=== PATIENT | female | born 1990 | race Hispanic/Latino ===

== ENCOUNTER 2017-10-18 20:18 | Emergency (ER) | payer SELFPAY ==
--- NOTE | 2017-10-18 21:01 | C.PDOC ---
History Of Present Illness 27F c/o left lower abd cramping on and off for a few days worse since last night. Small amount pink spotting x1 this morning none since. +preg test yesterday. last normal periods was mid august. had some light spotting sep 12 -. . denies psh or sig pmh. Time Seen by Provider: 10/18/17 20:26 Chief Complaint (Nursing): Abdominal Pain Past Medical History Vital Signs: Last Vital Signs Temp 98.1 F 10/18/17 23:45 Pulse 99 H 10/18/17 23:45 Resp 20 10/18/17 23:45 BP 116/78 10/18/17 23:45 Pulse Ox 97 10/18/17 23:45 - [facility] IMMOBILIZ/WOUND ATTN NEC (05/02/03) Family History: States: Other Other Family History: nc - Social History Hx Tobacco Use: Yes Hx Alcohol Use: Yes Hx Substance Use: Yes - Immunization History Hx Tetanus Toxoid Vaccination: No Hx Influenza Vaccination: No Hx Pneumococcal Vaccination: No Review Of Systems Constitutional: Negative for: Fever, Chills Cardiovascular: Negative for: Chest Pain Respiratory: Negative for: Cough, Shortness of Breath Gastrointestinal: Positive for: Abdominal Pain. Negative for: Nausea, Vomiting , Diarrhea Genitourinary: Negative for: Dysuria, Frequency, Incontinence Physical Exam - Physical Exam Appears: Well, Non-toxic, No Acute Distress Skin: Warm, Dry Oral Mucosa: Moist Cardiovascular: Rhythm Regular Respiratory: No Decreased Breath Sounds, No Accessory Muscle Use Gastrointestinal/Abdominal: Soft, Tenderness (LLQ only), No Distention, No Guarding, No Rebound Neurological/Psych: Oriented x3, Other (no focal deficits) ED Course And Treatment O2 Sat by Pulse Oximetry: 100 Medical Decision Making Medical Decision Making: TV ultrasound IMPRESSION: Single live IUP as above. 2.2 cm left ovarian cyst. Small amount of free fluid visualized. Followup imaging recommended. Pt appears comfortable, no distress. Abdominal exam benign. Disc results, plan for f/u and rtr. Disposition - Disposition Referrals: [facility] [Outside] Disposition: HOME/ ROUTINE Disposition Time: 23:45 Condition: GOOD Additional Instructions: Please follow up in the clinic. Return to the ER for any worsening symptoms or for any other concerns. Prescriptions: Nitrofurantoin Macrocrystals [Macrobid] 100 mg PO BID #14 cap Instructions: Abdominal Pain in (ED) Forms: General Discharge Instructions, [facility] (Bots[place]an) - Clinical Impression Clinical Impression: Abdominal pain in
[2017-10-18 21:02] LABS: RBC URINE 11 /hpf (0-3); URINE BACTERIA OCC (<OCC); URINE BILIRUBIN NEGATIVE (NEGATIVE); URINE BLOOD NEGATIVE (NEGATIVE); URINE COLOR Yellow (YELLOW); URINE GLUCOSE (UA) NORMAL (Normal); URINE KETONE NEGATIVE (NEGATIVE); URINE LEUKOCYTE ESTERASE 2+ Leu/uL (Negative); URINE PROTEIN NEGATIVE (NEGATIVE); URINE UROBILINOGEN NORMAL mg/dL (0.2-1.0); WBC URINE 29 /hpf (0-5)
--- NOTE | 2017-10-18 23:37 | US ---
EXAM: US CLINICAL HISTORY: 27 years old, female; Pain; complicated by abdominal or pelvic pain; Left lower quadrant; First trimester; Gestational age or lmp: 9-10-17; ; Additional info: Rule out ectopic TECHNIQUE: Real-time transabdominal and transvaginal obstetrical ultrasound of the maternal pelvis and a first trimester with image documentation. Transvaginal imaging was used for better evaluation of the fetus and adnexa. COMPARISON: No relevant prior studies available. FINDINGS: Gestation: Intrauterine gestational sac noted. Yolk sac and pole identified. Heart rate noted at 120 bpm. Estimated gestational age based on crown-rump length measurement is 6 weeks 1 day. Uterus/cervix: No acute abnormality as visualized. No myometrial mass. Ovaries: Bilateral flow. 2.2 cm left ovarian cyst. Free fluid: Small amount of free fluid visualized. IMPRESSION: Single live IUP as above. 2.2 cm left ovarian cyst. Small amount of free fluid visualized. Followup imaging recommended.
[2017-10-19 00:23] VITALS: BP 116/78; PULSE 99; RESP 20; TEMP 98.1
[2017-10-22 16:45] VITALS: O2SAT 100
== END 2017-10-18 22:50 | disposition home or self-care (01) ==
LOC: C.ER 20:18
DX: O26.891 Other specified pregnancy related conditions, first trimester (principal); Z3A.01 Less than 8 weeks gestation of pregnancy; R10.30 Lower abdominal pain, unspecified

== ENCOUNTER 2018-05-09 13:10 | Emergency (ER) | payer OTHER ==
--- NOTE | 2018-05-09 14:00 | OBHP ---
Datetime: 05/09/2018 13:42 IP Adm Impression: , intrauterine ; No Active Labor IP Chief Complaint Other: Pelvic pressure IP Admit Plan: Discharge home Admit Comment, IP Provider: 27 y.o. , LMP unsure, ZHANG 06/02/18, EGA 36w 4d per patietn by ultr asound 10/2017 at approx 6 weeks, c/o stronger pelvic pressure as of 1000 hours, pain scale 10/10; no w none. Last night onset of occ lower abdominal and upper abdomnal pressure, then progressed as above . (+) AFM; denies LOF, VB. Last had sexual intercourse 10/2017. care: [facility]; denies issues. Last visit 04/28; next visit 05/12. P OB: , 11/07/2008, male, 7lb 8oz. Gile; A1 GDM; no other complications. VTOP x 2: 2007, 10 weeks, with D_C. 2015, 6 weeks, medical - both, no complications. P FORGESMITH: 12 x monthly x 5. Denies STIs, abnormal Pap, myomata, ovarian cysts. PMH: denies PSH: D_C NKDA No food allergies Meds: PNV - QD Soc Hx: current tobacco use now 7 cig/day; prev 1/2 ppd since age 15. Denies EtOH or illicit drug use. With FOB x 10 yrs; lives with him and their son. Ass't [employer] Fam Hx: Mother alive 49 - lupus. Father age 60 - cirrhosis of liver/ h/o chr EtOH. MGF, mat aunt - colon cancer. 1 pat uncle - liver CA P.E.: as above. WD in NAD. Awake, alert, oriented to time, person and place. Pleasant and cooperat ayleen. Assessment: 27 y.o. P1021, 36w 4d, pelvic pressure - slight cervical dilatation. Category 1 saba ng. Clinically stable. Plan: 1) Advised to keep herself well hydrated 2) Keep next scheduled preanatal appointment 3) Reviewed S/S labor. Pelvic Type - PN: Adequate Extremities - PN: Normal Abdomen - PN: Normal Back - PN: Normal Breast - PN: Not Done Lungs - PN: Normal Heart - PN: Normal Thyroid - PN: Not Done Neurologic - PN: Normal HEENT - PN: Normal General - PN: Normal Weight - Estimated: 6 1/2 lbs Presentation-Admit: Vertex FHR - Baseline A Provider: 140 Contraction Comments Provider: none Comments, ACOG Physical Exam: Abdomen: Soft. Gravid. Fundal height 36cm All other systems reviewed and are negative Gestation - Est Wks by US: 36w 4d EGA AdmitDate IP: 36.4 Vital Signs Provider: Reviewed IP Chief Complaint: Uterine contractions; Other NICHD Variability Prov Fetus A: Moderate 6-25bpm NICHD Accel Fetus A IP Provider: 15X15 FHR Category Provider Fetus A: Category I NICHD Decel Fetus A IP Provider: None Dilatation, Provider: 2 Effacement, Provider: 40 Station, Provider: -3 Genitourinary Exam: Normal DTRs - PN: Normal
[2018-05-09 18:17] VITALS: BP 127/70; PULSE 111; RESP 17; TEMP 97.1
== END 2018-05-09 13:42 | disposition home or self-care (01) ==
LOC: C.EROB 13:10
DX: O34.33 Maternal care for cervical incompetence, third trimester (principal); O26.893 Other specified pregnancy related conditions, third trimester; R10.2 Pelvic and perineal pain; Z3A.36 36 weeks gestation of pregnancy

== ENCOUNTER 2018-05-29 19:56 | Emergency (ER) | payer OTHER ==
[2018-05-29 20:54] VITALS: BMI 32.2
--- NOTE | 2018-05-29 21:06 | OBHP ---
Datetime: 05/29/2018 20:43 IP Adm Impression: Term, intrauterine IP Admit Plan: Observation/Evaluation Admit Comment, IP Provider: IUP at 37 2/7 weeks Irregular contractions with + cervical change from visit and per patient FHT's reassuring Labor precautions reviewed with patient and she was Discharge home in Stable and Satisfactory cond ition. Pelvic Type - PN: Adequate Extremities - PN: Normal Abdomen - PN: Normal Back - PN: Normal Breast - PN: Normal Lungs - PN: Normal Heart - PN: Normal Thyroid - PN: Normal Neurologic - PN: Normal HEENT - PN: Normal General - PN: Normal Presentation-Admit: Vertex FHR - Baseline A Provider: 150 Membranes, Provider: Intact Contraction Comments Provider: Irregular and mild Gestation - Est Wks by US: 37+ Pool Provider: Negative EGA AdmitDate IP: 37.3 Vital Signs Provider: Reviewed IP Chief Complaint: Uterine contractions NICHD Variability Prov Fetus A: Moderate 6-25bpm NICHD Accel Fetus A IP Provider: 10X10 FHR Category Provider Fetus A: Category I NICHD Decel Fetus A IP Provider: None Dilatation, Provider: 1-2 Effacement, Provider: 50 Station, Provider: -3 Genitourinary Exam: Normal DTRs - PN: Normal
[2018-05-30 01:34] VITALS: BP 110/65; PULSE 82; TEMP 98.4
== END 2018-05-29 20:48 | disposition home or self-care (01) ==
LOC: C.EROB 19:56
DX: O47.1 False labor at or after 37 completed weeks of gestation (principal); Z3A.37 37 weeks gestation of pregnancy

== ENCOUNTER 2018-06-10 22:51 | Inpatient (IN) | payer OTHER ==
[2018-06-10 23:17] VITALS: BMI 31.9
--- NOTE | 2018-06-10 23:20 | OBADHP ---
Datetime: 06/10/2018 23:13 Admit Comment, IP Provider: at 39=weeks came with c/o lof on/off started today in morning, on/o ff, no ctxs,no vb,=fm obhx 1 x pmh de medcpnv all nkda psh de soch de sse +nitazne ve 2-370/-2 a/p at 39+weeks rom admit to l_d npo/ivf albs cont karly and efm cytoec aticipate Pelvic Type - PN: Adequate Extremities - PN: Normal Abdomen - PN: Normal Back - PN: Normal Breast - PN: Normal Lungs - PN: Normal Heart - PN: Normal Thyroid - PN: Normal Neurologic - PN: Normal HEENT - PN: Normal General - PN: Normal FHR - Baseline A Provider: 140 Contraction Comments Provider: irr Nitrazine Provider: Positive IP Hx Assessment: The History has been Reviewed and is Current Vital Signs Provider: Reviewed; Within Normal Limits IP Chief Complaint: Suspected ruptured membranes NICHD Variability Prov Fetus A: Moderate 6-25bpm NICHD Accel Fetus A IP Provider: 15X15 FHR Category Provider Fetus A: Category I Dilatation, Provider: 2 Effacement, Provider: 60 Station, Provider: -2 Genitourinary Exam: Normal DTRs - PN: Normal EGA AdmitDate IP: 39.1 IP Adm Impression: Term, intrauterine IP Admit Plan: Admit to unit; Initiate labor protocol Datetime: 05/29/2018 20:43 Presentation-Admit: Vertex Membranes, Provider: Intact Gestation - Est Wks by US: 37+ Pool Provider: Negative NICHD Decel Fetus A IP Provider: None Datetime: 05/09/2018 13:42 IP Chief Complaint Other: Pelvic pressure Weight - Estimated: 6 1/2 lbs Comments, ACOG Physical Exam: Abdomen: Soft. Gravid. Fundal height 36cm All other systems reviewed and are negative
[2018-06-10] MEDS: Lactated Ringer's 1,000 ML IV SCH (23:25)
[2018-06-10 23:55] LABS: BASO # 0.1 K/uL (0.0-0.2); BASO % 0.5 % (0.0-2.0); EOS # 0.3 K/uL (0.0-0.7); EOS % 1.8 % (0.0-4.0); HEMOGLOBIN 10.9 g/dL (11.0-16.0); LYMPH # 2.8 K/uL (1.0-4.3); LYMPH % 17.9 % (20.0-40.0); MEAN CELL VOLUME 87.9 fL (81.0-99.0); MEAN CORPUSCULAR HEMOGLOBIN 29.8 pg (27.0-31.0); MEAN CORPUSCULAR HGB CONC 33.9 g/dL (33.0-37.0); MONO % 6.1 % (0.0-10.0); NEUT # 11.6 K/uL (1.8-7.0); NEUT % 73.7 % (50.0-75.0); NRBC % 0.1 % (0.0-2.0); RBC 3.65 Mil/uL (3.80-5.20); RED CELL DISTRIBUTION WIDTH 13.1 % (11.5-14.5); WHITE BLOOD COUNT 15.7 K/uL (4.8-10.8)
[2018-06-11 00:32] LABS: BARBITURATES, UR NEGATIVE (NEGATIVE); BENZODIAZEPINES, UR NEGATIVE (NEGATIVE); OPIATES, UR NEGATIVE (NEGATIVE); PHENCYCLIDINE, UR NEGATIVE (NEGATIVE)
--- NOTE | 2018-06-11 07:17 | OBDS ---
DELIVERY PERSONNEL Delivery Doctor: Pradeep Pablo MD Scrub Nurse: Michelle [employer] Driver: Waleska Valera RN MATERNAL INFORMATION Delivery Anesthesia: Local Medications in Delivery: pitocin Estimated Blood Loss (ml): 350 Placenta Cultured: No Maternal Complications: None RN Comments: alive male delivered. dr Pablo attended delivery. patient sustended laceration and was sutured by dr pablo. infant attended by joy joyce. a/s / Provider Comments: baby deliverd in [place], end clean 9/9 cord gas no com LABOR SUMMARY EDC: 06/16/2018 00:00 No. Babies in Womb: 1 Attempted: No Labor Anesthesia: None LABOR INFORMATION Reason for Induction: Premature Rupture of Membranes Onset of Labor: 06/11/2018 04:00 Complete Dilatation: 06/11/2018 06:33 Cervical Ripening Agents: Cytotec @ Oxytocin: N/A Group B Beta Strep: Negative Steroids Given: None Reason Steroids Not Administered: Not Applicable MEMBRANES Membranes Rupture Method: Spontaneous Rupture of Membranes: 06/10/2018 11:00 Length of Rupture (hrs): 19.58 Amniotic Fluid Color: Clear STAGES OF LABOR Stage 1 hrs: 2 Stage 1 min: 33 Stage 2 hrs: 0 Stage 2 min: 2 Stage 3 hrs: 0 Stage 3 min: 2 Total Time in Labor hrs: 2 Total Time in Labor min: 37 VAGINAL DELIVERY Laceration Type: Periurethral Laceration Repair: Yes Initial Vag Sponge Count: 10+1 Final Vag Sponge Count: 10+1 Initial Vag Sharps Count: 0 Final Vag Sharps Count: 1 Sponge Count Correct: Yes; Vaginal Sweep Performed Sharps Count Correct: Yes BABY A INFORMATION Infant Delivery Date/Time: 06/11/2018 06:35 Method of Delivery: Vaginal Born in Route : No : N/A Forceps: N/A Vacuum Extraction: N/A Shoulder Dystocia : No SHOULDER DYSTOCIA BABY A Delivery Date/Time: 06/11/2018 06:35 PRESENTATION/POSITION BABY A Presentation: Cephalic Cephalic Presentation: Vertex Vertex Position: Left Occipital Anterior Breech Presentation: N/A PLACENTA INFORMATION BABY A Placenta Delivery Time : 06/11/2018 06:37 Placenta Method of Delivery: Spontaneous Placenta Status: Delivered SCORES BABY A Heart Rate 1 min: >100 bpm Resp Effort 1 min: Good Cry Reflex Irritability 1 min: Cough or Sneeze or Pulls Away Muscle Tone 1 min: Active Motion Color 1 min: Body [place], Extremities Blue SCORE 1 MIN: 9 Heart Rate 5 min: >100 bpm Resp Effort 5 min: Good Cry Reflex Irritability 5 min: Cough or Sneeze or Pulls Away Muscle Tone 5 min: Active Motion Color 5 min: Body [place], Extremities Blue SCORE 5 MIN: 9 INFORMATION BABY A Gestational Age at Delivery: 39.2 Gestational Status: Term Infant Outcome : Liveborn Condition : Stable Infant Sex: Male IDENTIFICATION/MEDS BABY A ID Band Number: [id number] ID Band Location: Left Leg; Left Arm Sensor Applied: Yes Sensor Number: [id number] Sensor Location : Cord Clamp Vitamin K Given : Not Given Erythromycin Given: Not Given WEIGHT/LENGTH BABY A Infant Birthweight (gms): 3825 Weight (lb): 8 Infant Weight (oz): 7 Infant Length Inches: 20.75 Infant Length cms: 52.7 CORD INFORMATION BABY A No. Cord Vessels: 3 Nuchal Cord : N/A Cord Blood Taken: Yes Infant Suction: Mouth ASSESSMENT BABY A Infant Complications: None Physical Findings at Delivery: Other Physical Findings Other: slight bluish discoloration of the face Infant Respirations: Appears Normal Corporate Financial Analyst/ALS Called : No Infant Care By: maria del carmen Davis rn Transferred To: Remains with Mother
[2018-06-11] MEDS ORDERED: Benzocaine/Menthol 20%-0.5% Topical Spray (60 ml) TOP PRN (08:00)
[2018-06-11] MEDS ORDERED: Oxycodone/Acetaminophen 5/325 mg Tab PO PRN (08:00)
[2018-06-11] MEDS: Lactated Ringer's 1,000 ML IV SCH (09:23)
[2018-06-11] MEDS ORDERED: Docusate-Senna 50 mg-8.6 mg Tab PO ONE (22:30)
[2018-06-12 08:57] LABS: BASO # 0.1 K/uL (0.0-0.2); BASO % 0.7 % (0.0-2.0); EOS # 0.2 K/uL (0.0-0.7); EOS % 1.8 % (0.0-4.0); HEMOGLOBIN 10.4 g/dL (11.0-16.0); LYMPH # 2.6 K/uL (1.0-4.3); LYMPH % 19.3 % (20.0-40.0); MEAN CELL VOLUME 88.4 fL (81.0-99.0); MEAN CORPUSCULAR HEMOGLOBIN 29.5 pg (27.0-31.0); MEAN CORPUSCULAR HGB CONC 33.4 g/dL (33.0-37.0); MEAN PLATELET VOLUME 9.7 fL (7.2-11.7); MONO # 0.9 K/uL (0.0-0.8); MONO % 6.5 % (0.0-10.0); NEUT # 9.6 K/uL (1.8-7.0); NEUT % 71.7 % (50.0-75.0); RBC 3.53 Mil/uL (3.80-5.20); RED CELL DISTRIBUTION WIDTH 13.4 % (11.5-14.5); WHITE BLOOD COUNT 13.4 K/uL (4.8-10.8)
[2018-06-13 00:03] VITALS: O2SAT 98
[2018-06-13 09:42] VITALS: BP 112/77; PULSE 72; RESP 18
--- NOTE | 2018-06-13 10:20 | OBPPN ---
Datetime: 06/12/2018 10:17 PP Pain Prov: Within normal limits PP Heart Prov: Normal PP Lungs Prov: Normal PP Abdomen/Uterus Prov: Normal PP Lochia Prov: Normal PP Impression Prov: Normal progression PP Plan Prov: Continue present management PP Progress Note Prov: PPD #1 Stable and Satisfacroty condition and recovery Advance care Will discharge home in AM IP PP Procedures: None Vital Signs Provider PP: Reviewed; Within Normal Limits
--- NOTE | 2018-06-13 10:24 | OBPPN ---
Datetime: 06/13/2018 10:19 PP Pain Prov: Within normal limits PP Nausea Prov: Denies PP Flatus Prov: Yes PP Heart Prov: Normal PP Lungs Prov: Normal PP Abdomen/Uterus Prov: Normal PP Lochia Prov: Normal PP Vulva/Perineum Prov: Normal PP Impression Prov: Normal progression PP Plan Prov: Discharge PP Progress Note Prov: PPD2 Stable Requesting Circumcision and counseled adequately and consent signed Will D/C home with instructions Vital Signs Provider PP: Reviewed; Within Normal Limits
--- NOTE | 2018-06-13 11:38 | OBDCSUM ---
Datetime: 06/13/2018 11:33 Discharged to, Provider: Home Follow up at, Provider: Clinic Disch Instr Activity: Normal activity Disch Instr Diet: Regular Discharge Instructions, Provider: Routine instructions given Discharge Diagnosis, Provider: Term Delivered Discharge Time: 06/13/2018 11:34 Follow up in weeks, Provider: 6 weeks or prn Contraception discussed, Prov: Yes Disch Activity Restrictions: No exercising; No lifting; No sexual activity; Nothing in vagina - Inte rcourse, tampons, douche Discharge Comment, Provider: PPD #2 Stable and Satisfactory condition and recovery Will follo up in Clinic in 6 weeks or prn Advised to increase po water intake and to continue PNV daily x 2-3 more months Contraception after Delivery: Not Planning to Use
[2018-06-13 19:01] VITALS: TEMP 97
== END 2018-06-13 14:00 | disposition home or self-care (01) | DRG 373 ==
LOC: C.EROB 22:51 → C.4D 23:15 → C.4M 06-11 08:25
PROVIDERS: ADMIT Obstetrics & Gynecology; ATTEND Obstetrics & Gynecology
PROC: 10E0XZZ Delivery of Products of Conception, External Approach (ICD-10-PCS; principal; 2018-06-11)
PROC: 0HQ9XZZ Repair Perineum Skin, External Approach (ICD-10-PCS; 2018-06-11)
DX: O71.82 Other specified trauma to perineum and vulva (principal); Z3A.39 39 weeks gestation of pregnancy; Z37.0 Single live birth